=== PATIENT | male | born 1975 | race Caucasian/White ===

== ENCOUNTER 2022-10-30 14:52 | Outpatient (CLI) | payer OTHER ==
[2022-10-30 15:32] LABS: Hemoglobin 14.5 g/dL (13.5-17.5); Mean Corpuscular HGB CONC 36.2 g/dL (32.0-36.0); Mean Corpuscular Volume 91.1 fl (81.2-95.1); Mean Platelet Volume 8.9 fl (7.4-10.4); Platelet Count 305 10x3/uL (150-450); RBC Distribution Width 12.4 % (11.5-14.5); White Blood Cell (WBC) Count 14.2 10x3/uL (3.5-10.5)
[2022-10-30 15:54] LABS: INR-International Normal Ratio 0.9; PTT 30.8 sec (22.0-33.0); Prothrombin Time 10.2 sec (9.5-12.1)
== END 2022-10-30 14:53 | disposition home or self-care (01) ==
LOC: LABBT 14:52
PROVIDERS: ATTEND Surgery
DX: Z01.812 Encounter for preprocedural laboratory examination (principal); M54.16 Radiculopathy, lumbar region; M48.062 Spinal stenosis, lumbar region with neurogenic claudication
CPT/HCPCS: 85027; 85610; 85730; 93005; 93010

== ENCOUNTER 2022-11-01 05:44 | Observation (INO) | payer OTHER ==
[2022-11-01] MEDS ORDERED: Vancomycin 1 GM VIAL ONE (06:57)
[2022-11-01] MEDS ORDERED: Thrombin 5000 UNITS/5 ML VIAL ONE ×2 (06:57→09:19)
[2022-11-01] MEDS ORDERED: Fentanyl 100 MCG/2 ML VIAL ONE (07:05)
[2022-11-01] MEDS ORDERED: Midazolam HCl 2 mg/2 ml Vial ONE (07:05)
[2022-11-01] MEDS ORDERED: PROPOFOL 200 MG/20 ML VIAL ONE (07:07)
[2022-11-01] MEDS ORDERED: Ondansetron PF 4 MG/2 ML Vial ONE (07:07)
[2022-11-01] MEDS ORDERED: Ketorolac Tromethamine 30 MG/ML VIAL ONE (07:07)
[2022-11-01] MEDS ORDERED: Metoprolol Tartrate 5 MG/5 ML VIAL ONE (07:07)
[2022-11-01] MEDS ORDERED: Dexamethasone 20 MG/5 ML VIAL ONE (07:07)
[2022-11-01] MEDS ORDERED: Rocuronium Bromide 10 MG/ML (10ML VIAL) ONE (07:07)
[2022-11-01] MEDS ORDERED: CEFAZOLIN 2 GM VIAL ONE (07:11)
[2022-11-01] MEDS ORDERED: Sodium Chloride 0.9% 100 ML ONE (07:11)
[2022-11-01] MEDS ORDERED: HYDROmorphone 2 MG/ML VIAL ONE (07:16)
[2022-11-01] MEDS ORDERED: PROPOFOL 20 ML ONE (07:42)
[2022-11-01] MEDS ORDERED: Acetaminophen 325 MG TAB PO PRN (10:41)
[2022-11-01] MEDS ORDERED: Acetaminophen/Codeine 30-300mg Tablet PO PRN (10:41)
[2022-11-01] MEDS ORDERED: Morphine 2 MG/ML VIAL SLOW IVP PRN (10:41)
[2022-11-01] MEDS ORDERED: diphenhydrAMINE 25 MG CAP PO PRN (10:41)
[2022-11-01] MEDS ORDERED: Ondansetron PF 4 MG/2 ML Vial IVP PRN (10:41)
[2022-11-01] MEDS ORDERED: hydrALAZINE 20 MG/ML VIAL SLOW IVP PRN (10:42)
[2022-11-01] MEDS ORDERED: Ondansetron HCl/PF 4 MG/2 ML Vial IVP PRN (10:56)
[2022-11-01] MEDS ORDERED: HYDROmorphone 2 MG/ML VIAL SLOW IVP PRN (10:56)
[2022-11-01] MEDS ORDERED: Promethazine HCl 25 MG/ML VIAL IM PRN (10:56)
[2022-11-01 11:48] VITALS: BMI 36.4
[2022-11-01] MEDS: Sodium Chloride 0.9% 1,000 ML IV SCH (11:56)
[2022-11-01] MEDS: CEFAZOLIN 2 GM in Sodium Chloride 0.9% 100 ML IVPB SCH ×2 (15:18→23:38)
[2022-11-01] MEDS: tiZANidine HCl 4 MG TAB PO PRN ×2 (15:18→23:38)
[2022-11-01] MEDS: HYDROcodone/Acetaminophen 7.5/325 mg Tablet PO PRN ×2 (15:35→22:09)
[2022-11-01] MEDS ORDERED: Atorvastatin Calcium 40 MG TAB PO SCH (21:00)
[2022-11-02] MEDS: traMADol HCl 50 MG TAB PO PRN ×2 (00:30→06:39)
[2022-11-02] MEDS: Sodium Chloride 0.9% 1,000 ML IV SCH (00:33)
[2022-11-02] MEDS: tiZANidine HCl 4 MG TAB PO PRN (06:39)
[2022-11-02] MEDS: CEFAZOLIN 2 GM in Sodium Chloride 0.9% 100 ML IVPB SCH (08:10)
[2022-11-02] MEDS ORDERED: Hydrochlorothiazide 25 MG TAB PO SCH (09:00)
[2022-11-02] MEDS ORDERED: CeleCOXIB 100 MG CAP PO SCH (09:00)
[2022-11-02] MEDS ORDERED: Valsartan 80 MG TAB PO SCH (09:00)
[2022-11-02 09:13] VITALS: BP 149/99; TEMP 98
== END 2022-11-02 10:56 | disposition home or self-care (01) ==
LOC: SDC 05:44 → SURG B 11:37
PROVIDERS: ADMIT Surgery; ATTEND Surgery
PROC: 01NB0ZZ Release Lumbar Nerve, Open Approach (ICD-10-PCS; principal; 2022-11-01)
PROC: 01NR0ZZ Release Sacral Nerve, Open Approach (ICD-10-PCS; 2022-11-01)
PROC: 0SB20ZZ Excision of Lumbar Vertebral Disc, Open Approach (ICD-10-PCS; 2022-11-01)
DX: M48.061 Spinal stenosis, lumbar region without neurogenic claudication (principal); M51.16 Intervertebral disc disorders with radiculopathy, lumbar region; M51.27 Other intervertebral disc displacement, lumbosacral region; I10 Essential (primary) hypertension; E78.5 Hyperlipidemia, unspecified; E66.9 Obesity, unspecified; Z68.36 Body mass index [BMI] 36.0-36.9, adult; Z86.16 Personal history of COVID-19; Z79.899 Other long term (current) drug therapy
CPT/HCPCS: 96365; 96376; C1889; G0378; J1100; J1170; J1885; J2250; J2405; J2704; J3010; J3370; J3490